=== PATIENT | female | born 1990 | race Caucasian/White ===

== ENCOUNTER 2016-08-01 11:30 | Emergency (ER) | payer OTHER ==
[~2016-08-01] VITALS: Ht 152.4 cm; Wt 57.7 kg
[~2016-08-01 11:30] MED LIST: AMOXICILLIN500 M1 PO; ATARAX,VISTARIL25 MG PO; BACTROBAN CREAM15 GM TP; CLEOCIN300 MG PO; CLINDAMYCIN HC300 MG PO; CLONIDINE HCL0.1 MG PO; CLONIDINE HCL0.2 MG PO; GABAPENTIN300 MG PO; HYDROMORPHONE HC2 MG; KEFLEX500 MG PO; MEDROL DOSEPAK4 MG PO; NAPROSYN500 MG PO; NICOTINE GUM4 MG BC; OXYCODONE HCL5 MG PO; PREDNISONE50 MG PO; PRENATAL GUMMI1 EACH PO; PRENATAL1 EACH PO; ROBAXIN500 MG PO; TRAZODONE HCL50 MG PO; ULTRAM50 MG PO; ZOFRAN ODT4 MG PO
[2016-08-01 12:15] LABS: MCHC 34.7 G/DL (30.0-36.0); MCV 86.5 FL (83-99); MEAN PLAT.VOLUME 10.1 uM^3 (9.5-12.4); PLATELET COUNT 207 K/uL (156-360); RBC DIS.WIDTH-CV 13.3 % (11.8-14.6); RBC DIS.WIDTH-SD 41.1 % (39-53); RED BLOOD COUNT 4.16 M/uL (3.80-5.20); WHITE BLOOD COUNT 20.1 K/uL (4.1-10.2)
[2016-08-01 12:22] LABS: CHLORIDE 103 mEq/L (99-109); POTASSIUM 4.2 mEq/L (3.7-5.4)
[2016-08-01 12:23] LABS: SODIUM 133 mEq/L (136-147)
[2016-08-01 12:24] LABS: GLUCOSE 100 mg/dL (70-99)
[2016-08-01 12:26] LABS: ANION GAP 14 MEQ/L (2-14)
[2016-08-01 12:28] LABS: GFR ESTIMATE (CALCULATED) > 59 mL/min/
[2016-08-01 12:29] LABS: UREA NITROGEN (BUN) 14 mg/dL (9-23)
[2016-08-01 12:38] LABS: QUANTITATIVE HCG < 4.0 MIU/ML
[2016-08-01] MEDS ORDERED: MEDROL DOSEPAK4 MG PO (14:08)
[2016-08-01] MEDS ORDERED: AUGMENTIN875 MG PO (14:08)
[2016-08-01 14:58] VITALS: BP 115/63
== END 2016-08-01 15:13 | disposition home or self-care (01) ==
LOC: RME 11:30 → EME 11:30 → RME 15:13
PROVIDERS: Nurse Practitioner Family
DX: J36 Peritonsillar abscess (principal); Z88.6 Allergy status to analgesic agent
CPT/HCPCS: 70491; 80048; 84702; 85027; 87651 90; 99281; 99285; J1100; J3010; J7030

== ENCOUNTER 2017-07-23 11:46 | Observation (INO) | payer OTHER ==
[~2017-07-23] VITALS: Ht 152.4 cm; Wt 56.9 kg
[~2017-07-23 11:46] MED LIST changes: +AUGMENTIN875 MG PO
[2017-07-23 14:41] LABS: HEMATOCRIT 37.4 % (36.0-46.0); HEMOGLOBIN 12.9 G/DL (11.9-15.5); MCH 30.3 PG (29.0-34.0); MCHC 34.5 G/DL (30.0-36.0); MCV 87.8 FL (83-99); PLATELET COUNT 248 K/uL (156-360); RBC DIS.WIDTH-CV 13.4 % (11.8-14.6); RBC DIS.WIDTH-SD 43.3 % (39-53); RED BLOOD COUNT 4.26 M/uL (3.80-5.20); WHITE BLOOD COUNT 8.4 K/uL (4.1-10.2)
[2017-07-23 14:56] LABS: CHLORIDE 108 mEq/L (99-109); SODIUM 140 mEq/L (136-147)
[2017-07-23 14:57] LABS: GLUCOSE 80 mg/dL (70-99)
[2017-07-23 15:01] LABS: CREATININE 0.7 mg/dL (0.6-1.3); GFR ESTIMATE (CALCULATED) > 59 mL/min/
[2017-07-23 15:02] LABS: UREA NITROGEN (BUN) 11 mg/dL (9-23)
[2017-07-23 15:32] LABS: AMPHETAMINE NEGATIVE (500 ng/mL); BARBITURATES NEGATIVE (200 ng/mL); BENZODIAZEPINES PRESUMPTIVE POSITIVE (150 ng/mL); BUPRENORPHINE PRESUMPTIVE POSITIVE (10 ng/mL); COCAINE NEGATIVE (150 ng/mL); METHADONE NEGATIVE (200 ng/mL); METHAMPHETAMINE NEGATIVE (500 ng/mL); OPIATES (MORPHINE) NEGATIVE (100 ng/mL); OXYCODONE PRESUMPTIVE POSITIVE (100 ng/mL); PHENCYCLIDINE NEGATIVE (25 ng/mL); PROPOXYPHENE NEGATIVE (300 ng/mL); THC CANNABINOIDS PRESUMPTIVE POSITIVE (50 ng/mL); TRICYCLIC ANTIDEPRESSANTS NEGATIVE (300 ng/mL)
[2017-07-23] MEDS ORDERED: ZUBSOLV 5.7-1.1 EACH SL ×2 (15:49→15:52)
[2017-07-23 15:55] LABS: BENZODIAZEPINES, URINE SCREEN POSITIVE (200 ng/mL)
[2017-07-23 16:10] LABS: ALBUMIN 3.8 g/dL (3.2-4.8)
[2017-07-23 16:13] LABS: TOTAL PROTEIN 6.9 g/dL (6.4-8.3)
[2017-07-23 16:15] LABS: TOTAL BILIRUBIN 0.3 mg/dL (0.0-1.0)
[2017-07-23 16:16] LABS: ALKALINE PHOSPHATASE 62 IU/L (3-129)
[2017-07-23 16:18] LABS: AST (GOT) 15 IU/L (2-34); DIRECT BILIRUBIN 0.1 mg/dL (0.0-0.3)
[2017-07-23 16:19] LABS: ALT (GPT) 8 IU/L (3-49)
[2017-07-23 19:48] VITALS: BP 103/54
[2017-07-23 22:20] VITALS: BP 101/53
[2017-07-24 04:31] VITALS: BP 135/80
[2017-07-24 06:32] LABS: CHLORIDE 112 MEQ/L (99-109); CREATININE 0.6 MG/DL (0.6-1.3); GFR ESTIMATE (CALCULATED) > 59 mL/min/; POTASSIUM 3.8 MEQ/L (3.7-5.4); SODIUM 144 MEQ/L (136-147); UREA NITROGEN (BUN) 10 mg/dL (9-23)
[2017-07-24 06:35] LABS: GLUCOSE 110 mg/dL (70-99)
== END 2017-07-24 12:00 | disposition home or self-care (01) ==
LOC: EME 11:46 → EDOF 15:56 → ENRESERV 15:58 → CANRESERV 16:09 → ENRESERV 16:09 → 4EAST 19:30
PROVIDERS: Emergency Medicine; Family Medicine
DX: T40.2X1A Poisoning by other opioids, accidental (unintentional), initial encounter (principal); F11.20 Opioid dependence, uncomplicated; I45.10 Unspecified right bundle-branch block; R00.1 Bradycardia, unspecified; F17.200 Nicotine dependence, unspecified, uncomplicated; Z86.19 Personal history of other infectious and parasitic diseases; Z88.5 Allergy status to narcotic agent; Z88.6 Allergy status to analgesic agent
CPT/HCPCS: 80048; 80076; 82948; 84999; 85027; 93005; 99281; 99285; G0378; J0574; J2310; J2405; J7030; S0028

== ENCOUNTER 2017-12-05 11:25 | Emergency (ER) | payer OTHER ==
[~2017-12-05] VITALS: Ht 152.4 cm; Wt 55.4 kg
[~2017-12-05 11:25] MED LIST changes: +ZUBSOLV 5.7-1.1 EACH SL
[2017-12-05] MEDS ORDERED: PEN-VEE K,VEET500 MG PO (12:23)
[2017-12-05] MEDS ORDERED: NAPROXEN500 MG PO (12:32)
[2017-12-05 12:46] VITALS: BP 133/73
== END 2017-12-05 12:49 | disposition home or self-care (01) ==
LOC: EME 11:25
PROC: 3E0T3BZ Introduction of Anesthetic Agent into Peripheral Nerves and Plexi, Percutaneous Approach (ICD-10-PCS; principal; 2017-12-05)
DX: K08.89 Other specified disorders of teeth and supporting structures (principal); Z88.6 Allergy status to analgesic agent; Z88.5 Allergy status to narcotic agent
CPT/HCPCS: 99281; 99283

== ENCOUNTER 2017-12-15 12:58 | Emergency (ER) | payer OTHER ==
[~2017-12-15] VITALS: Ht 152.4 cm; Wt 58.2 kg
[~2017-12-15 12:58] MED LIST changes: +NAPROXEN500 MG PO; +PEN-VEE K,VEET500 MG PO
[2017-12-15 17:14] LABS: PHENCYCLIDINE NEGATIVE (25 ng/mL); THC CANNABINOIDS NEGATIVE (50 ng/mL)
[2017-12-15 17:15] VITALS: BP 94/57
[2017-12-15 17:15] LABS: AMPHETAMINE NEGATIVE (500 ng/mL); BARBITURATES NEGATIVE (200 ng/mL); BENZODIAZEPINES PRESUMPTIVE POSITIVE (150 ng/mL); BUPRENORPHINE NEGATIVE (10 ng/mL); COCAINE PRESUMPTIVE POSITIVE (150 ng/mL); METHADONE NEGATIVE (200 ng/mL); METHAMPHETAMINE NEGATIVE (500 ng/mL); OPIATES (MORPHINE) NEGATIVE (100 ng/mL); OXYCODONE NEGATIVE (100 ng/mL); PROPOXYPHENE NEGATIVE (300 ng/mL); TRICYCLIC ANTIDEPRESSANTS NEGATIVE (300 ng/mL)
[2017-12-15 17:45] LABS: BENZODIAZEPINES, URINE SCREEN POSITIVE (200 ng/mL)
== END 2017-12-15 17:32 | disposition home or self-care (01) ==
LOC: EME 12:58
PROVIDERS: Emergency Medicine
DX: F14.10 Cocaine abuse, uncomplicated (principal); F13.10 Sedative, hypnotic or anxiolytic abuse, uncomplicated; F17.200 Nicotine dependence, unspecified, uncomplicated; Z88.5 Allergy status to narcotic agent; Z88.6 Allergy status to analgesic agent
CPT/HCPCS: 80048; 84702; 84999; 85025; 99281; 99284; G0480